=== PATIENT | female | born 1995 | race Caucasian/White ===

== ENCOUNTER 2017-01-09 16:44 | Emergency (ER) | payer OTHER ==
[~2017-01-09] VITALS: Ht 154.9 cm; Wt 64.5 kg
[~2017-01-09 16:44] MED LIST: ENDOCET 5-3251 EACH PO; IBUPROFEN800 MG PO; IRON325 M1 PO; MOTRIN800 MG PO; PERCOCET 5/31 TABLET PO; TUMS500 MG PO; TYLENOL REGULA325 MG PO
[2017-01-09 18:19] LABS: HEMATOCRIT 37.7 % (36.0-46.0); MCH 28.1 PG (29.0-34.0); MCHC 33.4 G/DL (30.0-36.0); MCV 84.2 FL (83-99); PLATELET COUNT 219 K/uL (156-360); RBC DIS.WIDTH-CV 12.8 % (11.8-14.6); RBC DIS.WIDTH-SD 39.1 % (39-53); RED BLOOD COUNT 4.48 M/uL (3.80-5.20); WHITE BLOOD COUNT 6.2 K/uL (4.1-10.2)
[2017-01-09 20:32] LABS: ADD MIUA? YES; BILIRUBIN NEGATIVE; BLOOD LARGE; COLOR YELLOW ((YELLOW)); GLUCOSE (STRIP) NEGATIVE; KETONES NEGATIVE; LEUKOCYTES NEGATIVE; NITRITE NEGATIVE; PROTEIN (STRIP) 30; SPECIFIC GRAVITY 1.029 (1.000-1.030); UROBILINOGEN 0.2 MG/DL (0.2-1.0)
[2017-01-09 21:21] LABS: BACTERIA 1+ /HPF; CASTS NONE SEEN /LPF; EPITHELIAL CELLS 2+ /HPF; MUCUS 1+ /LPF; RED BLOOD CELLS TNTC /HPF (0-5); UCUL ADDED? NO; WHITE BLOOD CELLS 0-5 /HPF (0-5)
[2017-01-09 22:18] VITALS: BP 117/67
== END 2017-01-09 22:20 | disposition home or self-care (01) ==
LOC: EME 16:44
DX: N93.8 Other specified abnormal uterine and vaginal bleeding (principal)
CPT/HCPCS: 76856; 81003; 84702; 85027; 99281; 99284

== ENCOUNTER 2017-10-03 18:40 | Outpatient (CLI) | payer OTHER ==
[~2017-10-03] VITALS: Ht 157.5 cm; Wt 69.5 kg
[2017-10-03 19:08] VITALS: BP 108/69
[2017-10-03 21:12] LABS: ADD MIUA? NO; BILIRUBIN NEGATIVE; BLOOD NEGATIVE; COLOR YELLOW ((YELLOW)); GLUCOSE (STRIP) NEGATIVE; KETONES NEGATIVE; LEUKOCYTES NEGATIVE; NITRITE NEGATIVE; PROTEIN (STRIP) NEGATIVE; SPECIFIC GRAVITY 1.017 (1.000-1.030); UCUL ADDED? NO; UROBILINOGEN 0.2 MG/DL (0.2-1.0)
[2017-10-03 21:33] LABS: AMPHETAMINE NEGATIVE (500 ng/mL); BARBITURATES NEGATIVE (200 ng/mL); BENZODIAZEPINES NEGATIVE (150 ng/mL); COCAINE NEGATIVE (150 ng/mL); INTERNAL CONTROLS VALID? YES; METHADONE NEGATIVE (200 ng/mL); METHAMPHETAMINE NEGATIVE (500 ng/mL); OPIATES (MORPHINE) NEGATIVE (100 ng/mL); OXYCODONE NEGATIVE (100 ng/mL); PHENCYCLIDINE NEGATIVE (25 ng/mL); PROPOXYPHENE NEGATIVE (300 ng/mL); THC CANNABINOIDS NEGATIVE (50 ng/mL); TRICYCLIC ANTIDEPRESSANTS NEGATIVE (300 ng/mL)
[2017-10-03 22:13] VITALS: BP 107/56
[2017-10-04 13:32] LABS: CHLAMYDIA TRACHOMATIS NEGATIVE; NEISSERIA GONORRHOEAE NEGATIVE
== END 2017-10-03 23:00 | disposition home or self-care (01) ==
LOC: LDRP-OP 18:40 → 2WEST 18:42
PROVIDERS: Nurse Practitioner
DX: O26.892 Other specified pregnancy related conditions, second trimester (principal); R10.9 Unspecified abdominal pain; Z3A.25 25 weeks gestation of pregnancy
CPT/HCPCS: 59025; 81003; 82731; 87086; 87491; 87591; G0378; J7030

== ENCOUNTER 2018-01-08 07:12 | Inpatient (IN) | payer OTHER ==
[~2018-01-08] VITALS: Ht 157.5 cm; Wt 78.9 kg
[2018-01-08] VITALS (23 sets, daily range): BP systolic 93–129; BP diastolic 54–78
[2018-01-08] MEDS ORDERED: TUMS500 MG PO (08:13)
[2018-01-08] MEDS ORDERED: TYLENOL REGULA325 MG PO (08:13)
[2018-01-08] MEDS ORDERED: PRENATAL TABLE1 EAC3 PO (08:14)
[2018-01-08 09:12] LABS: BASOPHIL (%) 0.4 % (0-1); EOSINOPHIL (%) 0.9 % (0-5); EOSINOPHIL COUNT 0.1 K/uL (0-0.3); HEMATOCRIT 28.5 % (36.0-46.0); HEMOGLOBIN 8.9 G/DL (11.9-15.5); IMMATURE GRANULOCYTE (%) 0.6 % (0.0-0.7); LYMPHOCYTE (%) 17.4 % (15-42); LYMPHOCYTE COUNT 1.8 K/uL (1.0-2.8); MCH 24.9 PG (29.0-34.0); MCHC 31.2 G/DL (30.0-36.0); MCV 79.8 FL (83-99); MONOCYTE (%) 7.8 % (3-12); MONOCYTE COUNT 0.8 K/uL (0-0.8); NEUTROPHIL (%) 72.9 % (45-76); NEUTROPHIL COUNT 7.3 K/uL (1.8-6.4); PLATELET COUNT 189 K/uL (156-360); RED BLOOD COUNT 3.57 M/uL (3.80-5.20); WHITE BLOOD COUNT 10.1 K/uL (4.1-10.2)
[2018-01-08 09:42] LABS: BENZODIAZEPINES, URINE SCREEN Negative (200 ng/mL)
[2018-01-08] MEDS ORDERED: MOTRIN800 MG PO (19:13)
[2018-01-09 07:25] VITALS: BP 120/71
[2018-01-09 08:50] LABS: BASOPHIL (%) 0.1 % (0-1); EOSINOPHIL (%) 0.4 % (0-5); EOSINOPHIL COUNT 0.1 K/uL (0-0.3); HEMATOCRIT 22.9 % (36.0-46.0); HEMOGLOBIN 7.2 G/DL (11.9-15.5); IMMATURE GRANULOCYTE (%) 0.7 % (0.0-0.7); LYMPHOCYTE (%) 16.2 % (15-42); LYMPHOCYTE COUNT 2.2 K/uL (1.0-2.8); MCHC 31.4 G/DL (30.0-36.0); MCV 79.5 FL (83-99); MONOCYTE (%) 6.9 % (3-12); MONOCYTE COUNT 0.9 K/uL (0-0.8); NEUTROPHIL (%) 75.7 % (45-76); NEUTROPHIL COUNT 10.3 K/uL (1.8-6.4); PLATELET COUNT 171 K/uL (156-360); RBC DIS.WIDTH-SD 39.8 % (39-53); RED BLOOD COUNT 2.88 M/uL (3.80-5.20); WHITE BLOOD COUNT 13.6 K/uL (4.1-10.2)
[2018-01-09 15:29] VITALS: BP 123/74
[2018-01-09 23:25] VITALS: BP 120/56
[2018-01-10 07:19] LABS: HEMATOCRIT 22.2 % (36.0-46.0); MCH 25.6 PG (29.0-34.0); MCHC 31.5 G/DL (30.0-36.0); MCV 81.3 FL (83-99); PLATELET COUNT 175 K/uL (156-360); RBC DIS.WIDTH-CV 14.3 % (11.8-14.6); RBC DIS.WIDTH-SD 41.5 % (39-53); RED BLOOD COUNT 2.73 M/uL (3.80-5.20); WHITE BLOOD COUNT 9.7 K/uL (4.1-10.2)
[2018-01-10 08:00] VITALS: BP 114/69
[2018-01-10] MEDS ORDERED: FERROUS SULFAT325 MG PO (09:33)
[2018-01-10] MEDS ORDERED: DOCUSATE SODIU100 MG PO (09:40)
[2018-01-10] MEDS ORDERED: COLACE100 MG PO (09:43)
[2018-01-10 10:01] VITALS: BP 105/56
[2018-01-10 10:02] VITALS: BP 109/61
[2018-01-10 16:00] VITALS: BP 117/65
== END 2018-01-10 16:55 | disposition home or self-care (01) | DRG 774 ==
LOC: LDRP-OP 07:12 → 2WEST 07:13 → LDRP-OP 02-10 10:41
PROVIDERS: Midwife; Nurse Practitioner; Obstetrics & Gynecology
DX: O76 Abnormality in fetal heart rate and rhythm complicating labor and delivery (principal); O72.1 Other immediate postpartum hemorrhage; O69.81X0 Labor and delivery complicated by cord around neck, without compression, not applicable or unspecified; O99.02 Anemia complicating childbirth; D50.9 Iron deficiency anemia, unspecified; R51 Headache; Z3A.39 39 weeks gestation of pregnancy; Z37.0 Single live birth
CPT/HCPCS: 80306 90; 85025; 85027; J7120